=== PATIENT | female | born 1990 | race Two or more races ===

== ENCOUNTER 2024-01-16 23:05 | Emergency (ER) | payer OTHER ==
[~2024-01-16] VITALS: Ht 170.2 cm; Wt 105.2 kg
[2024-01-16] MEDS ORDERED: TOPROL XL25 M1 (23:19)
[2024-01-16] MEDS ORDERED: PEPCID AC20 MG (23:19)
[2024-01-16] MEDS ORDERED: VASOFLEX TABLE1 EACH (23:19)
[2024-01-16] MEDS ORDERED: ORPHENADRINE CITRATE 30 MG/ML AMPUL IM STA (23:36)
[2024-01-16] MEDS ORDERED: ACETAMINOPHEN 500 MG GEL..CAP PO STA (23:36)
[2024-01-17] MEDS ORDERED: TRIAMCINOLONE ACETONIDE 40 MG/ML VIAL IM ONE (03:15)
== END 2024-01-17 03:12 | disposition home or self-care (01) ==
LOC: ER 23:05
DX: S73.191A Other sprain of right hip, initial encounter (principal); W18.39XA Other fall on same level, initial encounter; Y93.89 Activity, other specified; Y92.012 Bathroom of single-family (private) house as the place of occurrence of the external cause; Z88.6 Allergy status to analgesic agent; Z91.013 Allergy to seafood